=== PATIENT | male | born 1965 | race Two or more races ===

== ENCOUNTER 2019-11-06 03:58 | Observation (INO) ==
[2019-11-06] MEDS ORDERED: LABETALOL 20 MG/4 ML SYRINGE IV PRN (06:22)
[2019-11-06 07:32] LABS: Risk Ratio 6.61; VLDL CHOLESTEROL 44.6 MG/DL
[2019-11-06] MEDS ORDERED: ENOXAPARIN 40 MG/0.4 ML SYRINGE SUBCUT SCH (08:00)
[2019-11-06] MEDS ORDERED: ASPIRIN EC 325 MG TABLET PO SCH (09:00)
[2019-11-06] MEDS ORDERED: lisinopriL 10 MG TABLET PO SCH (09:30)
[2019-11-06 09:44] LABS: Basophils # 0.1 10*3/uL (0.0-0.2); Basophils % 0.9 % (0.0-0.8); Eosinophils # 0.2 10*3/uL (0.0-0.87); Eosinophils % 1.7 % (0.00-10.9); Hematocrit 46.6 VOL% (42.0-52.0); Hemoglobin 15.4 GM/DL (14.0-18.0); Immature Granulocytes % 0.3 %; Immature Granulocytes Absolute 0.03 #; Lymphocytes # 2.4 10*3/uL (1.4-4.0); Lymphocytes % 23.6 % (21.2-54.2); Mean Corpuscular Volume 94.7 FL (87-102); Monocytes % 6.6 % (1.7-12.7); Neutrophils % 66.9 % (38.7-73.9); Platelet Count 240 T/CUMM (130-400); Red Blood Count 4.92 MC/CUMM (3.8-5.5); Red Cell Distribution Width 13.2 % (9.3-17.3)
[2019-11-06 09:47] LABS: Barbiturates Screen,Urine Negative (Negative); Benzodiazepines Screen,Urine Negative (Negative); Cannabinoid Screen,Urine Negative (Negative); Opiate Screen,Urine Negative (Negative); Phencyclidine Screen,Urine Negative (Negative)
[2019-11-06 10:07] LABS: Alanine Aminotransferase 22 U/L (16-61); Albumin 3.6 G/DL (3.4-5.0); Alkaline Phosphatase 75 U/L (45-117); Aspartate Amino Transferase 13 U/L (0-37); Bilirubin,Total < 0.39 MG/DL (0.2-1.0); Blood Urea Nitrogen 14 MG/DL (7-18); Estimated Glom Filtration Rate 99 ML/MIN; Glucose 81 MG/DL (74-106); Osmolality,Calculated 276.5 MOS/KG (273-304); Total Protein 7.5 G/DL (6.4-8.3)
[2019-11-06 10:38] LABS: Folate 10.2 NG/ML (5.4-24.0)
[2019-11-06] MEDS ORDERED: LORazepam 2 MG/1 ML VIAL IV ONE (12:54)
[2019-11-06 13:06] VITALS: BP 163/84
[2019-11-06] MEDS ORDERED: ATORVASTATIN 40 MG TABLET PO SCH (21:00)
== END 2019-11-06 17:00 | disposition home or self-care (01) ==
LOC: N.4E → SUATTDRO 06:39
PROVIDERS: ADMIT Internal Medicine; ATTEND Internal Medicine